=== PATIENT | female | born 1970 | race Caucasian/White ===

== ENCOUNTER 2025-04-11 18:19 | Emergency (ER) | payer OTHER ==
[~2025-04-11] VITALS: Ht 170.2 cm; Wt 70.0 kg
--- NOTE | 2025-04-11 18:37 | ED.PDOC ---
GI ASSESSMENT HPI Comments 54-year-old female who came to ER via EMS for abdominal pain. Patient has a history of gallstones and peptic ulcer disease, status post bariatric surgery. States 30 minutes prior to arrival, she developed sudden onset epigastric abdominal pain, constant, associated with nausea. Patient also complaining of left-sided chest discomfort, radiating to the right shoulder, associated with shortness of breath. 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 Blood pressure on scene was 80/60 mm Hg, with a blood sugar of 111. Patient was given Zofran by paramedics EN route to the ER. Denies any GI bleed, blackish stools. 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 Allergies: Coded Allergies: Acetaminophen (Verified Allergy, Unknown, 05/13/15) Codeine (Unverified Allergy, Unknown, 08/14/14) Hydrocodone (Verified Allergy, Unknown, 05/13/15) Information Source: Patient, Emergency Med Personnel Mode of Arrival: EMS Timing: Minutes (30) Duration: Since onset Prehospital treatment: None Quality: Aching Vomitus: None Stool: Normal Severity: Moderate Recent: Ingestion of ETOH Recent Hx of: Ulcer Disease Pain Location: Epigastric Modifying Factors: Nothing Associated sign and symptoms: Nausea, Abdominal Pain Past Medical History PAST MEDICAL HISTORY: Anxiety, Gallstones, PUD, UTI'S Surgical History (Other): Bariatric surgery, laparoscopic evacuation of ruptured ulcer disease (april 2022) BAD CLOTH CHECKER History: No Pertinent BAD CLOTH CHECKER History Family History Family History: Reviewed,noncontributory to illness Social History Smoker: Non-Smoker Alcohol: Occasionally Drugs: Denies Drug Use Lives In: Home Constitutional: denies: chills, diaphoresis, fatigue, fever, malaise, sweats, weakness, others EENTM: denies: blurred vision, double vision, ear bleeding, ear discharge, ear drainage, ear pain, ear ringing, eye pain, eye redness, hearing loss, mouth pain, mouth swelling, nasal discharge, nose bleeding, nose congestion, nose pain, photophobia, tearing, throat pain, throat swelling, voice changes, others Respiratory: reports: shortness of breath; denies: cough, hemoptysis, orthopnea, SOB at rest, SOB with excertion, stridor, wheezing, others Cardiovascular: reports: chest pain; denies: dizzy spells, diaphoresis, Dyspnea on exertion, edema, irregular heart beat, left arm pain, lightheadedness, palpitations, PND, syncope, others Gastrointestinal: reports: abdominal pain, nausea; denies: abdomen distended, blood streaked bowels, constipated, diarrhea, dysphagia, difficulty swallowing, hematemesis, melena, poor appetite, poor fluid intake, rectal bleeding, rectal p ain, vomiting, others Genitourinary: denies: abnormal vagina bleeding, burning, dyspareunia, dysuria, flank pain, frequency, hematuria, incontinence, pain, , vagina discharge, urgency, others Neurological: denies: dizziness, fainting, headache, left sided numbness, left sided weakness, numbness, paresthesia, pre-existing deficit, right sided numbness, right sided weakness, seizure, speech problems, tingling, tremors, weakness, others Musculoskeletal: denies: back pain, gout, joint pain, joint swelling, muscle pain, muscle stiffness, neck pain, others Integumetry: denies: bruises, change in color, change in hair/nails, dryness, laceration, lesions, lumps, rash, wounds, others Allergic/Immunocompromised: denies: Difficulty Healing, Frequent Infections, Hives, Itching, others Hematologic/Lymphatic: denies: anemia, blood clots, easy bleeding, easy bruising, swollen glands, others Endocrine: denies: excessive hunger, excessive sweating, excessive thirst, excessive urination, flushing, intolerance to cold, intolerance to heat, unexplained weight gain, unexplained weight loss, others Psychiatric: denies: anxiety, bipolar disorder, depression, hopeless, panic disorder, schizophrenia, sleepless, suicidal, others Physical Exam General Appearance: No Apparent Distress, Normal HEENT: Normal ENT Inspection, Pharynx Normal, TMs Normal Neck: Full Range of Motion, Non-Tender, Normal, Normal Inspection Respiratory: Chest Non-Tender, Lungs Clear, No Accessory Muscle Use, No Respiratory Distress, Normal Breath Sounds Cardiovascular: No Edema, No JVD, No Murmur, No Gallop, Normal Peripheral Pulses, Regular Rate/Rhythm Breast Exam: Deferred Gastrointestinal: Epigastric, No Organomegaly, No Pulsatile Mass, Normal Bowel Sounds, Soft, Tenderness Genitalia: Deferred Pelvic: Deferred Rectal: Deferred Extremities: No calf tenderness, Normal capillary refill, Normal inspection, Normal range of motion, Non-tender, No pedal edema Musculoskeletal : Apperance: Normal Neurologic: Alert, parent educator II-XII nml as Tested, No Motor Deficits, Normal Affect, Normal Mood, No Sensory Deficits Cerebellar Function: Normal Reflexes: Normal Skin: Dry, Normal Color, Warm Lymphatic: No Adenopathy Was a procedure done? Was a procedure done?: No GI differential Dx Differential Diagnosis: Diverticular disease, Gastritis/PUD, Gastroenteritis, Pancreatitis, UTI, Hypovolemia, Anemia X-Ray, Labs, Meds, VS Vital Signs Date Time Temp Pulse Resp B/P (MAP) Pulse Ox O2 Delivery O2 Flow Rate FiO2 04/11/25 19:45 75 18 122/86 04/11/25 18:25 61 04/11/25 18:22 97.8 60 16 80/60 (67) 99 97.8 Lab Test 04/11/25 20:14 04/11/25 19:44 04/11/25 18:45 Range/Units Troponin I High Sensitivity Pending < 3 L </=34 ng/L Urine Color Yellow Yellow Urine Clarity Turbid H Clear Urine pH 5.5 5.0-9.0 Urine Specific [place] 1.018 1.001-1.035 Urine Protein Negative Negative Urine Ketones Negative Negative Urine Blood Negative Negative /uL Urine Nitrite Negative Negative Urine Bilirubin Negative Negative Urine Urobilinogen Normal Negative mg/dL Urine Leukocyte Esterase 1+ Negative /uL Urine RBC 2 0 - 4 /hpf Urine Microscopic WBC 7 H 0-5 /HPF Urine Squamous Epithelial Cells Few <5 /hpf Urine Bacteria None seen None Seen /hpf Urine Mucus Few None Seen Urine Glucose Normal Normal mg/dL White Blood Count 6.8 4.4-10.8 10^3/uL Red Blood Count 4.19 4.0-5.20 10^6/uL Hemoglobin 12.9 12.2-16.2 g/dL Hematocrit 39.3 36.0-46.0 % Mean Corpuscular Volume 93.8 80.0-100.0 fL Mean Corpuscular Hemoglobin 30.8 28.0-32.0 pg Mean Corpuscular Hemoglobin Concent 32.8 32.0-36.0 g/dL Red Cell Distribution Width 13.5 11.8-14.3 % Platelet Count 331 140-450 10^3/uL Mean Platelet Volume 7.8 6.9-10.8 fL Neutrophils (%) (Auto) 63.5 37.0-80.0 % Lymphocytes (%) (Auto) 28.6 10.0-50.0 % Monocytes (%) (Auto) 5.9 0.0-12.0 % Eosinophils (%) (Auto) 1.4 0.0-7.0 % Basophils (%) (Auto) 0.6 0.0-2.0 % Neutrophils # (Auto) 4.4 1.6-8.6 10 ^3/uL Lymphocytes # (Auto) 2.0 0.4-5.4 10 ^3/uL Monocytes # (Auto) 0.4 0-1.3 10 ^3/uL Eosinophils # (Auto) 0.1 0-0.8 10 ^3/uL Basophils # (Auto) 0 0-0.2 10 ^3/uL Nucleated Red Blood Cells 0.1 % Sodium Level 152 H 136-145 mmol/L Potassium Level 4.7 3.5-5.1 mmol/L Chloride Level 116 H 98-107 mmol/L Carbon Dioxide Level 25 20-31 mmol/L Anion Gap 11 5-15 Blood Urea Nitrogen 9 9-23 mg/dL Creatinine 0.85 0.550-1.02 mg/dL Glomerular Filtration Rate Calc 80 >90 mL/min BUN/Creatinine Ratio 10.6 10.0-20.0 Serum Glucose 94 74-106 mg/dL Calcium Level 8.9 8.7-10.4 mg/dL Total Bilirubin 0.2 0.2-1.0 mg/dL Aspartate Amino Transferase (AST) < 8 L 13-40 U/L Alanine Aminotransferase (ALT) 10 7-40 U/L Alkaline Phosphatase 89 46-116 U/L Total Protein 5.8 5.7-8.2 g/dL Albumin 4.0 3.2-4.8 g/dL Lipase 27 12-53 U/L Plasma/Serum Blood Alcohol 100.7 H <10 mg/dL Current Medications Medications (Trade) Dose Ordered Sig/Vee Route Start Time Stop Time Status Last Admin Ondansetron HCl (Zofran) 4 mg ONCE ONCE IV 04/11/25 18:45 04/11/25 18:46 DC 04/11/25 19:45 Sodium Chloride 1,000 ml @ 1,000 mls/hr Q1H ONCE IVB 04/11/25 18:45 04/11/25 19:44 DC 04/11/25 19:45 Morphine Sulfate 4 mg ONCE ONCE IV 04/11/25 18:45 04/11/25 18:46 DC 04/11/25 19:45 Famotidine (Pepcid Injection) 20 mg ONCE ONCE IV 04/11/25 18:45 04/11/25 18:46 DC 04/11/25 19:45 Exam: CT CT AB PEL WITH IV CON ONLY History: abd pain Comparison Study: None Contrast: Type of contrast: Omni 300 Contrast injected: 99 mL Contrast wasted: 0 TECHNIQUE: A digital stripper soft plastic image was obtained. During the uneventful, intravenous administration of contrast material, multislice data acquisition was obtained through the abdomen and pelvis. The data set was subsequently reconstructed into axial images. Images were reviewed on a work station using a combination of axial and multiplanar using a variety of window levels and settings. Radiation Dose Information: CT Dose: CTDI volume is 11.39 mGy. Dose-length product is 624.72 mGy*cm FINDINGS: Lung Bases: No acute or significant lung base finding. Normal heart size. No pleural or pericardial effusion. Liver: The liver is normal in size. No focal lesions. Normal hepatic vascular enhancement. Gallbladder and Biliary Tree: Small gallstones layering out posteriorly in the gallbladder. Spleen: Unremarkable Pancreas: The pancreas is normal in appearance without focal lesions or abnormal enhancement. Adrenal Glands: Unremarkable Kidneys: Kidneys demonstrate normal symmetric enhancement without focal lesions, calculi or hydronephrosis. Bladder: Unremarkable Bowel: The stomach is grossly normal in appearance. Postop changes in the left lower quadrant. Patient has had surgery in the lower left abdomen. There is a fluid collection in the left lower abdomen measuring 5.7 x 4.2 cm with enhancing wall. This may represent focal dilatation of the bowel in which the surgery has been performed or may represent an abscess consider repeat study with oral contrast. The appendix is not visualized; however, no secondary findings of acute appendicitis identified. Ascites: Absent Lymphadenopathy: No mesenteric, retroperitoneal or periportal lymphadenopathy. Abdominal Wall and Mesentery: Unremarkable. Vasculature: The visualized abdominal aorta is normal in size and caliber. Abdominal and pelvic vessels demonstrate normal enhancement. Pelvic Organs: Unremarkable Musculoskeletal: No aggressive focal bony lesions, acute fractures or dislocation. Soft tissues: Unremarkable. IMPRESSION: 1. 5.7 x 4.2 cm fluid collection in the left lower abdomen. Fluid contents centrally measure 12.25 Hounsfield units. Findings may represent a focal dilated loop of bowel in which surgery has been performed findings 2 not suggest obstruction. Other possibilities may be abscess. ( Series 2 images 51- 60). Consider repeat study with oral contrast. 2. Gallstones. 3. Collapsed nondilated colon with mucosal thickening. Correlate for possible colitis. 4. IUD in the uterus. 5. All CT scans at this medical facility are performed using dose modulation techniques as appropriate to a performed exam including the following: Automated exposure control was utilized; adjustment of the MA and/or KV according to patient size; and use of iterative reconstruction technique. Time of 1ST Reevaluation: 18:31 Reevaluation 1ST: Unchanged Patient Education/Counseling: Diagnosis, Treatment Family Education/Counseling: No Family Present Departure 1 Departure Time of Disposition: 21:36 Impression: Primary Impression: UTI (urinary tract infection) Additional Impression: Intra-abdominal abscess Disposition: ADMITTED INPATIENT Admit to: Other (transfer) Condition: Guarded Discharged With: Self Critical Care Note Critical Care Time?: No Stability Stability form required: No Heart Score Heart Score: Heart Score Response (Comments) Value History Slightly Suspicious 0 EKG Normal 0 Age 45-64 1 Risk Factors 1 or 2 risk factors 1 Troponin Normal limit 0 Total 2 I personally scribed for MARILIN DE DIOS MD ([email or web address]) on 04/11/25 at 18:37. Electronically submitted by Geovanni Mark ([facility] I personally scribed for MARILIN DE DIOS MD ([email or web address]) on 04/11/25 at 21:25. Electronically submitted by Geovanni Mark ([email or web address]). I personally scribed for MARILIN DE DIOS MD ([email or web address]) on 04/11/25 at 21:29. Electronically submitted by Geovanni Mark ([facility] MARILIN DE DIOS MD Apr 11, 2025 18:37
[2025-04-11 19:02] LABS: Basophils # (auto) 0 10 ^3/uL (0-0.2); Basophils % (auto) 0.6 % (0.0-2.0); Eosinophils # (auto) 0.1 10 ^3/uL (0-0.8); Eosinophils % (auto) 1.4 % (0.0-7.0); Hematocrit 39.3 % (36.0-46.0); Hemoglobin 12.9 g/dL (12.2-16.2); Lymphocytes % (auto) 28.6 % (10.0-50.0); Mean Corpuscular Hemoglobin 30.8 pg (28.0-32.0); Mean Corpuscular Hgb Conc. 32.8 g/dL (32.0-36.0); Mean Corpuscular Volume 93.8 fL (80.0-100.0); Monocytes # (auto) 0.4 10 ^3/uL (0-1.3); Monocytes % (auto) 5.9 % (0.0-12.0); Neutrophils # (auto) 4.4 10 ^3/uL (1.6-8.6); Neutrophils % (auto) 63.5 % (37.0-80.0); Nucleated Red Blood Cells % 0.1 %; Platelet Count (auto) 331 10^3/uL (140-450); Red Blood Cells 4.19 10^6/uL (4.0-5.20); Red Cell Distribution Width 13.5 % (11.8-14.3); White Blood Cell 6.8 10^3/uL (4.4-10.8)
[2025-04-11 19:18] LABS: Alanine Aminotransferase 10 U/L (7-40); Alkaline Phosphatase 89 U/L (46-116); Anion Gap 11 (5-15); BUN/Creatinine Ratio 10.6 (10.0-20.0); Blood Alcohol 100.7 mg/dL (<10); Blood Urea Nitrogen 9 mg/dL (9-23); Calcium 8.9 mg/dL (8.7-10.4); Carbon Dioxide 25 mmol/L (20-31); Glucose 94 mg/dL (74-106); Potassium 4.7 mmol/L (3.5-5.1); Total Protein 5.8 g/dL (5.7-8.2)
[2025-04-11 19:32] LABS: Aspartate Aminotransferase < 8 U/L (13-40); Bilirubin, Total 0.2 mg/dL (0.2-1.0); Chloride 116 mmol/L (98-107); Sodium 152 mmol/L (136-145)
[2025-04-11 19:45] VITALS: PULSE 85; RESP 18; O2SAT 98
[2025-04-11] MEDS: IOHEXOL 300 MG/ML 100ML BOTTLE IJ ONE (19:45)
[2025-04-11] MEDS: SODIUM CHLORIDE 0.9% 1,000 ML IVB ONE (19:45)
[2025-04-11] MEDS: FAMOTIDINE (10MG/ML) 2ML VL IV ONE (19:45)
[2025-04-11] MEDS: ONDANSETRON HCL 4 MG/2 ML VIAL IV ONE ×2 (19:45→23:54)
[2025-04-11] MEDS: MORPHINE SULFATE 4 MG/ML SYR/VIAL IV ONE ×2 (19:45→23:53)
[2025-04-11 19:47] LABS: Lipase 27 U/L (12-53)
[2025-04-11 19:51] LABS: Urine Bacteria None Seen /hpf (None Seen)
[2025-04-11 20:10] LABS: Urine Blood Negative /uL (Negative); Urine Clarity Turbid (Clear); Urine Color Yellow (Yellow); Urine Mucus FEW (None Seen); Urine Protein, UAD Negative (Negative); Urine Specific Gravity 1.018 (1.001-1.035); Urine Squamous Epithelial Cell FEW /hpf (<5); Urine Urobilinogen Normal (Negative); Urine WBC 7 /HPF (0-5); Urine pH 5.5 (5.0-9.0)
--- NOTE | 2025-04-11 21:07 | DVH ---
Exam: CT CT AB PEL WITH IV CON ONLY History: abd pain Comparison Study: None Contrast: Type of contrast: Omni 300 Contrast injected: 99 mL Contrast wasted: 0 TECHNIQUE: A digital assembler deck and hull image was obtained. During the uneventful, intravenous administration of c ontrast material, multislice data acquisition was obtained through the abdomen and pelvis. The data s et was subsequently reconstructed into axial images. Images were reviewed on a work station using a c ombination of axial and multiplanar using a variety of window levels and settings. Radiation Dose Information: CT Dose: CTDI volume is 11.39 mGy. Dose-length product is 624.72 mGy*cm FINDINGS: Lung Bases: No acute or significant lung base finding. Normal heart size. No pleural or pericardial effusion. Liver: The liver is normal in size. No focal lesions. Normal hepatic vascular enhancement. Gallbladder and Biliary Tree: Small gallstones layering out posteriorly in the gallbladder. Spleen: Unremarkable Pancreas: The pancreas is normal in appearance without focal lesions or abnormal enhancement. Adrenal Glands: Unremarkable Kidneys: Kidneys demonstrate normal symmetric enhancement without focal lesions, calculi or hydroneph rosis. Bladder: Unremarkable Bowel: The stomach is grossly normal in appearance. Postop changes in the left lower quadrant. Pat ient has had surgery in the lower left abdomen. There is a fluid collection in the left lower abdomen measuring 5.7 x 4.2 cm with enhancing wall. This may represent focal dilatation of the bowel in whic h the surgery has been performed or may represent an abscess consider repeat study with oral contrast . The appendix is not visualized; however, no secondary findings of acute appendicitis identified. Ascites: Absent Lymphadenopathy: No mesenteric, retroperitoneal or periportal lymphadenopathy. Abdominal Wall and Mesentery: Unremarkable. Vasculature: The visualized abdominal aorta is normal in size and caliber. Abdominal and pelvic vess els demonstrate normal enhancement. Pelvic Organs: Unremarkable Musculoskeletal: No aggressive focal bony lesions, acute fractures or dislocation. Soft tissues: Unremarkable. IMPRESSION: 1. 5.7 x 4.2 cm fluid collection in the left lower abdomen. Fluid contents centrally measure 12.25 Ho unsfield units. Findings may represent a focal dilated loop of bowel in which surgery has been perfor med findings 2 not suggest obstruction. Other possibilities may be abscess. ( Series 2 images 51- 60) . Consider repeat study with oral contrast. 2. Gallstones. 3. Collapsed nondilated colon with mucosal thickening. Correlate for possible colitis. 4. IUD in the uterus. 5. All CT scans at this medical facility are performed using dose modulation techniques as appropriat e to a performed exam including the following: Automated exposure control was utilized; adjustment of the MA and/or KV according to patient size; and use of iterative reconstruction technique. HS:Y
[2025-04-11] MEDS: cefTRIAXone 1GM/50ML D5W 50 ML IV ONE (21:30)
[2025-04-11] MEDS: metroNIDAZOLE 500MG/100ML 100 ML IV ONE (21:53)
[2025-04-11 22:21] LABS: Lactic Acid w/Reflex 2.6 mmol/L (0.4-2.0)
[2025-04-12 03:54] VITALS: BP 134/63; PULSE 84; RESP 20; TEMP 100.1; O2SAT 98
--- NOTE | 2025-04-13 12:21 | ECG ---
[facility] Test Date: 2025-04-11 Test Time: 18:25:00 Pat Name: KVNG ARCE Department: ED Room: Gender: F Roll Hand: DR HAMM: 1970 Requested By: MARILIN DE DIOS Order Number: [id number] Reading MD: Charles Burgos Measurements Intervals [place] Rate: 61 P: 78 CT: 152 QRS: 82 QRSD: 99 T: 60 QT: 456 QTc: 460 Interpretive Statements Sinus rhythm Electronically Signed On 04-15-2025 20:50:22 PDT by Charles Burgos Please click the below link to view image of tracing.
== END 2025-04-12 04:10 | disposition short-term general hospital (02) ==
LOC: EDBD 18:19 → ER 18:22
DX: N39.0 Urinary tract infection, site not specified (principal); K65.1 Peritoneal abscess; F41.9 Anxiety disorder, unspecified; Z98.84 Bariatric surgery status; Z88.5 Allergy status to narcotic agent; Z87.11 Personal history of peptic ulcer disease; Z79.899 Other long term (current) drug therapy
CPT/HCPCS: 36415; 74177; 80053; 80320; 81001; 83605; 83690; 84484; 85025; 87040; 93005; 96361; 96365; 96368; 96375; 96376; 99285; J0696; J2270; J2405; J3490; J7030; Q9967